=== PATIENT | female | born 1980 | race Two or more races ===

== ENCOUNTER 2016-08-02 23:44 | Emergency (ER) | payer SELFPAY ==
[~2016-08-02] VITALS: Ht 172.7 cm; Wt 130.6 kg
[2016-08-02 23:51] VITALS: BP 137/85
[2016-08-03] MEDS ORDERED: HYDR-971 PO (00:11)
[2016-08-03] MEDS ORDERED: AMOX500C PO (00:11)
--- NOTE | 2016-08-03 00:11 | PHYS DOC ---
Past Medical History Past Medical History: No Pertinent History Past Surgical History: Cholecystectomy, Alcohol Use: None Drug Use: None Adult General Chief Complaint Chief Complaint: DENTAL PROBLEM HPI HPI Patient is a 36 year old female presents to the emergency department with a history of dental pain. She'll states she's had a fractured tooth for quite some time. She states that it is becoming increasingly painful in which she fully stairs of infection. She denies any fever, chills or any nausea vomiting. She has been taken Tylenol and ibuprofen with no relief. Review of Systems Review of Systems Constitutional: Denies fever or chills [] Eyes: Denies change in visual acuity, redness, or eye pain [] HENT: Denies nasal congestion or sore throat. Dental pain right upper tooth Respiratory: Denies cough or shortness of breath [] Cardiovascular: No additional information not addressed in HPI [] GI: Denies abdominal pain, nausea, vomiting, bloody stools or diarrhea [] : Denies dysuria or hematuria [] Musculoskeletal: Denies back pain or joint pain [] Integument: Denies rash or skin lesions [] Neurologic: Denies headache, focal weakness or sensory changes [] Endocrine: Denies polyuria or polydipsia [] Allergies Allergies Allergies Coded Allergies Type Severity Reaction Last Updated Verified paroxetine Allergy Intermediate 08/02/16 Yes propoxyphene Allergy Intermediate 08/02/16 Yes tramadol Allergy Intermediate 08/02/16 Yes Physical Exam Physical Exam Constitutional: Well developed, well nourished, no acute distress, non-toxic appearance. [] HENT: Normocephalic, atraumatic, bilateral external ears normal, oropharynx moist, no oral exudates, nose normal. Bilateral tympanic membranes appear to be normal. Patient appears to have a fractured tooth at the number for area. Gumline appears to be slightly red. Eyes: PERRLA, EOMI, conjunctiva normal, no discharge. [] Neck: Normal range of motion, no tenderness, supple, no stridor. [] Cardiovascular:Heart rate regular rhythm, no murmur [] Lungs & Thorax: Bilateral breath sounds clear to auscultation [] Skin: Warm, dry, no erythema, no rash. [] Back: No tenderness Extremities: No tenderness, no cyanosis, no clubbing, ROM intact, no edema. [] Neurologic: Alert and oriented X 3, normal motor function, normal sensory function, no focal deficits noted. [] Psychologic: Affect normal, judgement normal, mood normal. [] Current Patient Data Vital Signs Vital Signs Date Time Temp Pulse Resp B/P (MAP) Pulse Ox O2 Delivery O2 Flow Rate FiO2 08/02/16 23:51 98.6 110 18 100 Room Air 98.6 EKG EKG [] Radiology/Procedures Radiology/Procedures [] Course & Med Decision Making Course & Med Decision Making Pertinent Labs and Imaging studies reviewed. (See chart for details) She will be discharged home in stable condition. She'll be provided with a prescription for amoxicillin. She'll be provided with a prescription for hydrocodone with 4 tablets. Patient was encouraged to follow-up with a dentist within the next week. Signs symptoms to return back to emergency department been provided. Patient was instructed that hydrocodone will cause drowsiness do not take any be alert and oriented. [] Dragon Disclaimer Dragon Disclaimer This electronic medical record was generated, in whole or in part, using a voice recognition dictation system. Departure Departure Impression: Primary Impression: Fracture, tooth Additional Impression: Pain, dental Disposition: HOME, SELF-CARE Condition: STABLE Referrals: NO PCP (PCP) Patient Instructions: Dental Pain, [id number], Tooth Fracture Additional Instructions: Activity as tolerated tolerated. Medication as prescribed. Hydrocodone will cause drowsiness do not take any be alert and oriented. Continue with ibuprofen and Tylenol for pain and discomfort. You may purchase dental wax [id number] to place over the fractured tooth to help with pain and discomfort. Follow-up with the dentist within the next week. Return back to emergency department sign symptoms of become worse. Scripts Hydrocodone/Apap 5-325 (NORCO 5-325 TABLET) 1 Each Tablet 1 TAB PO PRN Q6HRS Y for PAIN, #4 TAB 0 Refills Prov: CHEYENNE LINDSAY APRN 08/03/16 Amoxicillin (AMOXICILLIN) 500 Mg Capsule 1 CAP PO QID, #40 CAP Prov: CHEYENNE LINDSAY APRN 08/03/16 Problem Qualifiers CHEYENNE LINDSAY APRN August 03, 2016 00:11
== END 2016-08-03 00:16 | disposition home or self-care (01) ==
LOC: ER 23:44
DX: S02.5XXA Fracture of tooth (traumatic), initial encounter for closed fracture (principal); Z90.49 Acquired absence of other specified parts of digestive tract; Z88.8 Allergy status to other drugs, medicaments and biological substances; Z88.5 Allergy status to narcotic agent; X58.XXXA Exposure to other specified factors, initial encounter; Y93.89 Activity, other specified; Y92.89 Other specified places as the place of occurrence of the external cause; Y99.8 Other external cause status
CPT/HCPCS: 99283